=== PATIENT | female | born 1985 | race Caucasian/White ===

== ENCOUNTER → 2023-05-09 | Day surgery (SDC) | payer OTHER ==
[~2023-05-09] VITALS: Ht 157.5 cm; Wt 61.2 kg
[~2023-05-09] MED LIST: ACETAMINOPHEN 325MG TABLET PO NR; CIPROFLOXACIN 0.3% OPHTH SOLN 2.5ML RIGHTEYE ONE; FENTANYL CITRATE/PF 50MCG/ML 2ML VIAL ONE; GABA-532 PO; IBUP-2029 PO; LACTATED RINGERS 1,000 ML IV SCH; METHYLPREDNISOLONE SOD SUCC 40MG/ML (ACT-O-VIAL) ONE; MIDAZOLAM HCL 2 MG/2 ML VIAL ONE; OMEP20TA23 PO; PROPOFOL 200MG/20ML VIAL IV ONE; TOBRAMYCIN SULFATE 40MG/ML 2ML ONE; TOPUD MT
[2023-05-09 07:44] LABS: UCG QC LOT# 745097; UCG SCREEN NEGATIVE
== END | disposition home or self-care (01) ==
LOC: OR 06:49
PROVIDERS: ATTEND Ophthalmology
DX: H11.001 Unspecified pterygium of right eye (principal); Z79.899 Other long term (current) drug therapy; Z98.890 Other specified postprocedural states
CPT/HCPCS: 65420; 88304; 81025; J3010; J2920; J2250; J2704; J3260